=== PATIENT | male | born 1955 | race Caucasian/White ===

== ENCOUNTER 2016-09-24 20:01 | Inpatient (IN) | payer SELFPAY ==
[~2016-09-24] VITALS: Ht 188 cm; Wt 111.0 kg
[~2016-09-24 20:01] MED LIST: NOHOMEMEDS
[2016-09-24 20:32] LABS: HEMATOCRIT 45.6 % (38.0-50.0); MCHC 34.9 G/DL (30.0-36.0); MCV 83.1 FL (86-99); MEAN PLAT.VOLUME 11.3 uM^3 (9.0-12.4); PLATELET COUNT 233 K/uL (156-360); RBC DIS.WIDTH-CV 12.6 % (11.8-14.6); RBC DIS.WIDTH-SD 37.9 % (39-53); RED BLOOD COUNT 5.49 M/uL (4.00-5.50); WHITE BLOOD COUNT 12.9 K/uL (4.1-10.2)
[2016-09-24 20:42] LABS: CHLORIDE 102 mEq/L (99-109); SODIUM 137 mEq/L (136-147)
[2016-09-24 20:44] LABS: GLUCOSE 271 mg/dL (70-99)
[2016-09-24 20:45] LABS: ANION GAP 11 MEQ/L (2-14)
[2016-09-24 20:46] LABS: TOTAL BILIRUBIN 2.1 mg/dL (0.0-1.0)
[2016-09-24 20:48] LABS: ALKALINE PHOSPHATASE 62 IU/L (3-129); GFR ESTIMATE (CALCULATED) > 59 mL/min/
[2016-09-24 20:49] LABS: UREA NITROGEN (BUN) 16 mg/dL (9-23)
[2016-09-24 21:25] LABS: ADD MIUA? YES; BILIRUBIN NEGATIVE; BLOOD MODERATE; COLOR YELLOW ((YELLOW)); GLUCOSE (STRIP) >=500; KETONES 20; LEUKOCYTES NEGATIVE; NITRITE NEGATIVE; PROTEIN (STRIP) 100; SPECIFIC GRAVITY 1.025 (1.000-1.030); UROBILINOGEN 0.2 MG/DL (0.2-1.0)
[2016-09-24 21:27] LABS: BACTERIA RARE /HPF; EPITHELIAL CELLS NONE SEEN /HPF; MUCUS TRACE /LPF; RED BLOOD CELLS TNTC /HPF (0-5); UCUL ADDED? NO
[2016-09-25 03:20] VITALS: BP 145/89
[2016-09-25 06:27] LABS: POINT-OF-CARE METER ID UU14174225
[2016-09-25 07:06] LABS: HEMATOCRIT 40.8 % (38.0-50.0); MCH 28.9 PG (29.0-34.0); MCHC 34.3 G/DL (30.0-36.0); MCV 84.1 FL (86-99); MEAN PLAT.VOLUME 11.3 uM^3 (9.0-12.4); PLATELET COUNT 180 K/uL (156-360); RBC DIS.WIDTH-CV 12.7 % (11.8-14.6); RBC DIS.WIDTH-SD 39.2 % (39-53); RED BLOOD COUNT 4.85 M/uL (4.00-5.50); WHITE BLOOD COUNT 11.8 K/uL (4.1-10.2)
[2016-09-25 07:28] LABS: ALKALINE PHOSPHATASE 52 IU/L (3-129); ANION GAP 10 MEQ/L (2-14); CHLORIDE 103 MEQ/L (99-109); GFR ESTIMATE (CALCULATED) > 59 mL/min/; GLUCOSE 198 mg/dL (70-99); POTASSIUM 3.7 MEQ/L (3.7-5.4); SAMPLE HEMOLYSIS CHECK 0; SAMPLE ICTERIC CHECK 0; SAMPLE LIPEMIA CHECK 0; SODIUM 139 MEQ/L (136-147); UREA NITROGEN (BUN) 17 mg/dL (9-23)
[2016-09-25 08:01] VITALS: BP 149/85
[2016-09-25 10:55] LABS: Estimated Average Glucose 272 mg/dL (70-123); HEMOGLOBIN A1c (GLYCOHEMOGLOB) 11.1 % HGB (Below 5.7)
[2016-09-25 11:27] VITALS: BP 153/89
[2016-09-25 11:41] LABS: POINT-OF-CARE METER ID UU14174225
[2016-09-25 14:35] LABS: POINT-OF-CARE METER ID UU13113675
[2016-09-25 17:31] LABS: POINT-OF-CARE METER ID UU14188625
[2016-09-25 20:00] VITALS: BP 142/85
[2016-09-25 21:01] LABS: POINT-OF-CARE METER ID UU14188625
[2016-09-26] VITALS: BP 131/86
[2016-09-26 03:48] VITALS: BP 99/63
[2016-09-26 07:53] VITALS: BP 131/82
[2016-09-26] MEDS ORDERED: CIPROFLOXACIN500 M1 PO (11:09)
[2016-09-26] MEDS ORDERED: TAMSULOSIN HCL0.4 MG PO (11:09)
[2016-09-26] MEDS ORDERED: GLIPIZIDE10 MG PO (11:09)
[2016-09-26] MEDS ORDERED: METFORMIN HCL500 MG PO (11:09)
[2016-09-26 11:17] VITALS: BP 137/87
== END 2016-09-26 15:24 | disposition home or self-care (01) | DRG 669 ==
LOC: EME 20:01 → EDOF 09-25 00:53 → 5SOUTH 09-25 03:02
PROVIDERS: Internal Medicine
DX: N13.2 Hydronephrosis with renal and ureteral calculous obstruction (principal); R31.29 Other microscopic hematuria; E11.65 Type 2 diabetes mellitus with hyperglycemia; N39.0 Urinary tract infection, site not specified; F32.9 Major depressive disorder, single episode, unspecified; K76.0 Fatty (change of) liver, not elsewhere classified; K57.30 Diverticulosis of large intestine without perforation or abscess without bleeding; I70.0 Atherosclerosis of aorta; E66.9 Obesity, unspecified; M48.06 Spinal stenosis, lumbar region; K80.20 Calculus of gallbladder without cholecystitis without obstruction; Z68.31 Body mass index [BMI] 31.0-31.9, adult; Z91.14 Patient's other noncompliance with medication regimen; Z88.0 Allergy status to penicillin; Z87.442 Personal history of urinary calculi; Z09 Encounter for follow-up examination after completed treatment for conditions other than malignant neoplasm
CPT/HCPCS: 74176; 80053; 81003; 82365 90; 82948; 83036; 85027; 87040; 93005; 99281; 99285; C1876; J0330; J0690; J0744; J1644; J1815; J2175; J2250; J2405; J3010; J7030